=== PATIENT | female | born 1955 | race Caucasian/White ===

== ENCOUNTER → 2019-04-13 06:43 | Day surgery (SDC) | payer SELFPAY ==
--- NOTE | 2019-04-03 15:56 | HP ---
CC: Dr. Jaleesa De Jesus * ADMISSION HISTORY AND PHYSICAL: DATE OF ADMISSION: 04/13/19 ATTENDING SURGEON: Dr. Christy Wisdom.* (DICTATED BY YEHUDA SCHAEFER) CHIEF COMPLAINT: Left breast lesion. HISTORY OF PRESENT ILLNESS: This is a 63-year-old female who has undergone initial routine screening mammography and additional diagnostic imaging on the left breast. This began in 2015 when screening mammography showed an area of clustered microcalcifications with architectural distortion in the upper outer quadrant of the left breast. An MRI done on 05/07/16 showed an enhancing lesion corresponding to the changes on mammography that were felt to be suspicious for carcinoma and biopsy was recommended. The patient did undergo an initial fine needle aspiration by Dr. Ortega in the office on 05/12/16. Pathology at that time was benign. She has undergone subsequent mammography and ultrasound, and eventually an MRI-guided biopsy on 06/15/17 showing nonproliferative fibrocystic changes. A biopsy clip was left in place. The lesion in question is located in the 2 to 3 o'clock position of the left breast approximately 4 to 5 cm from the areola. There is a second stable lesion in the adjacent area felt to be most consistent with a lipoma. Her most recent mammogram and ultrasound on 02/22/19 showed stable changes with a persistent area of architectural distortion in the left upper outer quadrant. It was recommended by Radiology that the patient again consult with Surgery for possible excision of the architectural distortion. She had undergone prior right breast biopsy many years ago for benign pathology. She has not noticed any changes in either breast including new lumps, skin changes, or nipple discharge. Her menstrual history is outlined in her chart record. She is 0. There is breast cancer history in maternal aunt and maternal cousin. There is no history of ovarian cancer. She was seen in the office by Dr. Wisdom on 02/27/19. Exam at that time showed an area of nodularity in the 3 o'clock position of the left breast located 1 to 2 cm from the areola. There was no discrete mass and no palpable mass in the right breast nor any axillary adenopathy. Dr. Wisdom discussed with her the indications for surgery, the risks, benefits, and alternatives including ongoing surveillance and imaging. The patient understands all these issues and would like to proceed as scheduled with lumpectomy of this left breast lesion following needle localization. PAST MEDICAL HISTORY: Hypothyroidism (on replacement), impaired fasting glucose , hypertension, obesity, hyperlipidemia. PAST SURGICAL HISTORY: Previous surgery includes bilateral breast biopsies as noted above and tubal ligation. CURRENT MEDICATIONS: 1. Levothyroxine 125 mcg once daily. 2. Metformin 500 mg 2 tablets b.i.d. 3. She also takes vitamin B12 and vitamin D supplements. DRUG ALLERGIES: None known. FAMILY HISTORY: As noted above. SOCIAL HISTORY: The patient is . 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 She denies use of tobacco, alcohol, or other recreational drugs. REVIEW OF SYSTEMS: General: No recent constitutional symptoms or acute illnesses. She has had intentional weight loss of a few pounds in recent months. She is attempting to increase her exercise regimen. HEENT: No problems reported. Thyroid: She was treated for hypothyroidism. She also has a thyroid nodule that has been previously biopsied with benign findings and has been followed closely without recent changes. Cardiovascular: No chest pain, palpitations, history of heart murmur. She is treated for hypertension. Respiratory: No history of asthma, chronic cough, or shortness of breath. GI: No problems reported. Colonoscopy done within the past 2 to 3 years, reportedly normal, was recommended 10-year followup and no interval symptoms of concern. : No problems reported. 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 Her last pelvic exam and Pap smear were approximately 2 years ago with no interval problems reported. Endocrine: Hypothyroidism as noted above. Impaired fasting glucose. The patient does not recall her most recent A1c but is followed regularly. PHYSICAL EXAMINATION GENERAL: Well-nourished, obese female in no acute distress. VITAL SIGNS: Height 5 feet 3 inches, weight 200 pounds, BMI 34. Blood pressure 122/76, pulse 60, respirations 16. HEENT: Pupils equal, round, reactive. EOMs intact. No conjunctival pallor. Oropharynx: Teeth in good repair. No intraoral lesions. NECK: No lymphadenopathy, thyromegaly, or masses. No discrete nodules appreciated on today's exam. LUNGS: Clear to auscultation. No wheezes. HEART: Regular rate and rhythm. No murmur noted. ABDOMEN: Soft, nontender to palpation. No palpable masses or organomegaly. BREASTS: As per Dr. Wisdom's exam, not repeated today. BACK: No spinous process or CVA tenderness. EXTREMITIES: No edema. GENITALIA: Not done. RECTAL: Not done. NEUROLOGICAL: Grossly intact. SKIN: Warm and dry. No suspicious rashes or lesions noted. IMPRESSION: Left breast lesion. PLAN: Lumpectomy, left breast (following needle localization). YEHUDA SCHAEFER [id number]/[facility] #: [id number] [facility] HOSPITALCamille
[~2019-04-13 06:43] MED LIST: Buffered Lidocaine 1% SYRIN* 1 ML/SYRINGE INTRADERM ONE; Bupivacaine 0.5% W/EPI SDV* 30 ML VIAL ONE; Bupivacaine 0.5%* 50 ML VIAL ONE; Lactated Ringers 1000 ML Bag* 1,000 ML IV SCH; Lidocaine 2.5%/Prilocain 2.5%* 5 GM TUBE ONE; Midazolam* 1 MG/ML 5 ML VIAL (5 MG) ONE; Naloxone* 0.4 MG/ML 1 ML VIAL IV PRN; Propofol* 10 MG/ML 20 ML BTL ONE; ceFAZolin 2 GM in NS PREMIX(*) 2 GM/100 ML BAG IVPB ONE; fentaNYL* 50 MCG/ML 2 ML VIAL (100 MCG VIAL) ONE
[2019-04-13 17:40] VITALS: BP 154/66
--- NOTE | 2019-04-13 21:15 | OP ---
DATE OF OPERATION: 04/13/19 - [facility] DATE OF : 55 SERVICE: General Surgery. ATTENDING SURGEON: Christy Wisdom MD. CARPENTER MINE: Robyn Unger NP. ANESTHESIOLOGIST: Brenden Rodrigez DO. ANESTHESIA: MAC/local anesthesia. PRE-OP DIAGNOSIS: Left breast mammographic abnormality. POST-OP DIAGNOSIS: Left breast mammographic abnormality. OPERATIVE PROCEDURE: Left breast wire localized lumpectomy. SPECIMEN: Left breast excisional biopsy. ESTIMATED BLOOD LOSS: Minimal, less than 10 cc. INDICATIONS: Ms. Earl is a very pleasant 63-year-old female with a history of a mammographic abnormality in her left breast that was biopsied several years ago and it was identified as benign breast tissue; however, given that the results were discordant with the imaging findings on her most recent diagnostic mammogram, it was suggested that she undergo excisional biopsy given this incongruence. She gave informed consent for the surgery. She understood the risks, benefits, and alternatives of the procedure, and she wished to proceed. DESCRIPTION OF PROCEDURE: The patient was brought back to the operating room and placed on the operating table in the supine position. Sequential compression devices were placed in the bilateral lower extremities for DVT prophylaxis. Antibiotics were administered. Her MAC anesthesia was initiated. Her left breast was prepped and draped in normal sterile fashion, and prior to beginning the procedure, a time-out was performed, verifying the patient's name, MR number, and the procedure to be performed as well as the laterality, which was the left breast. The patient had come from Radiology with the wire localized within the lesion and imaging was also displayed in the operating room. Local anesthesia consisting of 0.25% Marcaine and 1% lidocaine was administered to the skin surrounding the wire. Next, approximately a 4-cm incision was made surrounding the wire and a cone of tissue surrounding the wire was taken inferiorly, approximately 6 cm given the A-P depth that was seen on the mammogram. After that cone of tissue was taken and removed from the breast, sutures were used to orient the specimen. A short suture was placed in the superior margin, a medium length suture was placed in the medial margin, and a long suture was placed in the lateral margin. The specimen was then carried to mammogram where it was confirmed that the wire, the mammographic abnormality, as well as the clip were all contained within the specimen. Next, hemostasis was obtained in the breast cavity. The breast cavity was also irrigated using normal saline fluid and then once hemostasis was obtained, approximately 10 cc of local anesthesia was administered to the breast cavity and then the incision was closed. The dermal layer was closed using interrupted 3-0 Vicryl sutures and the skin was closed using a running 4-0 Monocryl suture. Sterile dressing was then placed. The patient's was awoken from her anesthesia and then she was taken to the PACU in stable condition. At the end of the case , all counts were correct and I was present for the entirety of the case. [id number]/[facility] #: [id number] MTDD
== END | disposition home or self-care (01) ==
LOC: OR 06:43
PROVIDERS: ATTEND Surgery
DX: C50.412 Malignant neoplasm of upper-outer quadrant of left female breast (principal); E03.9 Hypothyroidism, unspecified; R73.01 Impaired fasting glucose; I10 Essential (primary) hypertension; E78.5 Hyperlipidemia, unspecified; E66.9 Obesity, unspecified
CPT/HCPCS: 88307; 88360; A9270-GY; J0690; J2250; J2704; J3010; J3490

== ENCOUNTER → 2019-05-04 06:47 | Day surgery (SDC) | payer OTHER ==
[~2019-05-04 06:47] MED LIST changes: -Bupivacaine 0.5% W/EPI SDV* 30 ML VIAL ONE; +Bupivacaine 0.5%* 50 ML MDV VIAL ONE; -Bupivacaine 0.5%* 50 ML VIAL ONE; +Ibuprofen TAB* 600 MG ONE; +Ibuprofen TAB* 600 MG PO ONE; +Lidocaine 1% INJ* 10 MG/ML 30 ML SDV ONE; +Lidocaine 2% PF * 5 ML VIAL ONE; +Losartan TAB* 25 MG PO ONE; +Methylene Blue 0.5 %* 50 MG/10 ML AMP IV ONE; +Midazolam* 1 MG/ML 2 ML VIAL (2 MG) ONE; -Midazolam* 1 MG/ML 5 ML VIAL (5 MG) ONE; +Sodium Citrate/Citric Acid* 15 ML UDC ONE; +Sodium Citrate/Citric Acid* 15 ML UDC PO ONE; +fentaNYL* 50 MCG/ML 2 ML VIAL (100 MCG VIAL) IV PRN
--- NOTE | 2019-05-04 17:01 | OP ---
CC: Dr. Dana Avila; Dr. Azael Conroy * DATE OF OPERATION: 05/04/19 - [facility] DATE OF : 55 SERVICE: General Surgery. SURGEON: Christy Wisdom MD. MANAGER NIGHT: Robyn Unger NP. ANESTHESIOLOGIST: Brenden Rodrigez DO. ANESTHESIA: LMA, general anesthesia. PRE-OP DIAGNOSIS: Left breast cancer. POST-OP DIAGNOSIS: Left breast cancer. OPERATIVE PROCEDURE: Left axillary sentinel lymph node biopsy. ESTIMATED BLOOD LOSS: Minimal, less than 10 cc. SPECIMENS: Left axillary sentinel lymph nodes #1 through 6, left axillary lymph node #1, left axillary lymph node #2, and axillary bed contents. INDICATIONS FOR SURGERY: Ms. Earl is a very pleasant 63-year-old female with a history of a left breast mammographic abnormality that was discordant with the core biopsy result. Therefore, she underwent a left breast excisional biopsy several weeks ago, which confirmed an ER/LA+ invasive ductal adenocarcinoma with negative margins. Given this, she required returning to the operating room for a sentinel lymph node biopsy in order to stage the axilla. She understood the risks, benefits, and alternatives of the procedure, and she wished to proceed. DESCRIPTION OF PROCEDURE: The patient was brought back to the operating room and placed on the operating table in the supine position. Earlier in the morning, the patient had gone to Radiology for administration of radioisotope in the periareolar region. Lymphoscintigraphy showed that there was some uptake distal to the injection site; however, it did not appear to travel very far. Given this, the decision was also made to inject blue dye around the incision to assist with visualization of the sentinel lymph nodes. The patient underwent LMA anesthesia and then after this, approximately 3 cc of blue dye was infiltrated into the region around her old breast incision, which was located in the left upper outer quadrant. Her left breast and axilla were then prepped and draped in normal sterile fashion. The arm was placed on an arm board at a 90 degree angle and all pressure points were padded. Prior to beginning the procedure, time-out was performed, verifying the patient's name, MR number, and the procedure to be performed. Next, the navigator probe was used to detect the area of higher counts from the skin level. There was no obvious area that had higher counts. A transverse incision was therefore made in a natural crease line in the mid to anterior axillary line. The skin was divided down to the subcutaneous tissue and then the fascia overlying the axillary fat pad was divided. Next, the subcutaneous tissue was retracted inferiorly and superiorly and the axillary contents were then grasped with an Allis clamp and delivered out into the wound bed. A navigator probe was used to detect the level of higher counts. In the superficial axillary fat pad, there was no distinct counts with the navigator; however, 2 prominent axillary lymph nodes were identified. They both had very minimal counts, but the 2 axillary lymph nodes were dissected out and sent off as specimen as left axillary lymph node #1 and axillary lymph node #2. After both of these were dissected out, the navigator was used to identify the following sentinel lymph nodes #1 through 6. [place] lymph node #1 had an in situ count of 145 and an ex vivo count of 70. [place] lymph node #2 had an in situ count of 1155 and an ex vivo count of 1059. This was noted to be the most prominent sentinel lymph node. The sentinel lymph node #3 had an in vivo count of 62 and an ex vivo count of 36. [place] lymph node #4 had an in situ count of 146 and an ex vivo count of 30. [place] lymph node #5 had an in situ count of 118 and an ex vivo count of 19. [place] lymph node #6 had an in situ count of 135 and an ex vivo count of 72. At the end of the case, the axillary bed count was 5. Of note, identifying these sentinel lymph nodes was done with the assistance of a navigator. The blue dye was not apparent at the time of surgery in the axillary bed. After removal of sentinel lymph nodes, there was a small amount of axillary content that was also removed and sent as specimen. After this, hemostasis was obtained in the axillary bed. Saline was used to irrigate the axillary bed as well, and once hemostasis was obtained, the deep axillary fascia was loosely reapproximated using interrupted 3-0 Vicryl sutures and then the skin incision was closed using interrupted 3-0 Vicryl sutures in the subdermal layer and using a running 4-0 Monocryl suture in the skin. Sterile dressing was then placed. The patient's anesthesia was reversed and she was taken to the PACU in stable condition. At the end of the case, all counts were correct and I was present during the entirety of the case. [id number]/[facility] #: [id number] [facility]IMIN[facility] INSANECamille
[2019-05-04 18:11] VITALS: BP 154/64
== END | disposition home or self-care (01) ==
LOC: OR 06:47
PROVIDERS: ATTEND Surgery
DX: C50.912 Malignant neoplasm of unspecified site of left female breast (principal); I10 Essential (primary) hypertension; R73.03 Prediabetes; E03.9 Hypothyroidism, unspecified
CPT/HCPCS: 78195; 88305; 88307; 88342; A9270-GY; A9541; J0690; J2250; J2704; J3010; J3490